=== PATIENT | female | born 1940 | race Caucasian/White ===

== ENCOUNTER → 2016-09-02 | Outpatient (CLI) | payer MEDICARE, BC ==
[~2016-09-02] MED LIST: ASPIR-LOW81 MG PO; CALTRATE-600 W600 MG PO; FISH OIL CONC1000 MG PO; FOSAMAX 70MG TA70 MG PO; LEVOTHYROXIN0.088 MG PO; SIMVASTATIN10 MG PO
== END ==
LOC: MC.RAD 10:40
DX: Z12.31 Encounter for screening mammogram for malignant neoplasm of breast (principal)

== ENCOUNTER → 2017-01-03 | Outpatient (CLI) | payer MEDICARE, BC | LOC: COL.RAD 12:48 | DX: H53.9 Unspecified visual disturbance (principal) ==

== ENCOUNTER 2018-06-19 09:19 | Day surgery (SDC) | payer MEDICARE, BC ==
[~2018-06-19] VITALS: Ht 160 cm; Wt 55.8 kg
[~2018-06-19 09:19] MED LIST changes: +EPA FISH OIL1 SGL PO; -FISH OIL CONC1000 MG PO; -LEVOTHYROXIN0.088 MG PO; -SIMVASTATIN10 MG PO; +SYNTHROID0.075 MG/T PO; +ZOCOR 20MG20 MG PO
[2018-06-19] MEDS ORDERED: MULTI VITAMINS1 TAB PO (09:51)
[2018-06-19] MEDS ORDERED: CRANBERRY450 MG PO (09:52)
[2018-06-19] MEDS ORDERED: METAMUCIL MUL0.52 GM PO (09:52)
[2018-06-19 09:53] VITALS: BP 172/76; PULSE 86; TEMP 98.3
--- NOTE | 2018-06-19 11:15 | NUR ---
Pt to [place] [facility] via cart from [facility]. Pt awake and alert. Pt ambulates to recliner with stand by assistance. Warm blanket provied. Coffee and muffin given per pt request. Will continue to monitor. Call light within reach.
[2018-06-19 11:55] VITALS: BP 124/70; PULSE 72
[2018-06-19 12:10] VITALS: BP 136/66; PULSE 63
--- NOTE | 2018-06-19 12:10 | NUR ---
Pt continues to rest. Denies needs. Tolerating food and fluids without difficulties. Call light within reach.
[2018-06-19 12:25] VITALS: BP 139/67; PULSE 63
--- NOTE | 2018-06-19 12:25 | NUR ---
Pt continues to rest. Denies needs. Call light within reach.
[2018-06-19 12:40] VITALS: BP 158/69; PULSE 78
--- NOTE | 2018-06-19 12:40 | NUR ---
Discharge instructions reviewed. Pt voices understanding. IV site discontinued with all parts intact. Pt up to dress. Call light within reach.
--- NOTE | 2018-06-19 12:50 | NUR ---
Pt escorted to private car via wheel chair. Pt accompanied home by her daughter.
--- NOTE | 2018-06-19 12:55 | NUR ---
Pt awake, taking ice chips. Pt has more color to her cheeks. Will continue to monitor. Call light within reach.
== END 2018-06-19 12:50 | disposition home or self-care (01) ==
LOC: SDCO 09:19
DX: K57.30 Diverticulosis of large intestine without perforation or abscess without bleeding (principal); K92.1 Melena; K21.9 Gastro-esophageal reflux disease without esophagitis; E78.00 Pure hypercholesterolemia, unspecified; Z88.5 Allergy status to narcotic agent; Z88.6 Allergy status to analgesic agent; Z79.82 Long term (current) use of aspirin; Z86.010 Personal history of colon polyps; Z83.79 Family history of other diseases of the digestive system
CPT/HCPCS: J2704; J7120

== ENCOUNTER → 2019-07-30 | Outpatient (CLI) | payer MEDICARE, BC ==
[~2019-07-30] MED LIST changes: +CRANBERRY450 MG PO; +METAMUCIL MUL0.52 GM PO; +MULTI VITAMINS1 TAB PO
== END ==
LOC: MC.RAD 10:14
DX: Z12.31 Encounter for screening mammogram for malignant neoplasm of breast (principal)

== ENCOUNTER 2020-02-22 08:59 | Emergency (ER) | payer MEDICARE, BC ==
[~2020-02-22] VITALS: Ht 160 cm; Wt 59.1 kg
[2020-02-22 09:05] VITALS: TEMP 98.2
[2020-02-22 09:53] LABS: BASO % 0.6 % (0.0-2.0); EOS # 0.2 (0.0-0.7); EOS % 4.2 % (0-4.0); GRAN # 2.5 (1.4-6.5); GRAN % 51.8 % (42.2-75.2); HEMATOCRIT 39.8 % (37.0-47.0); HEMOGLOBIN 12.9 g/dl (12.5-16.0); LYMPH # 1.6 (1.2-3.4); LYMPH % 33.4 % (20.0-51.0); MEAN CELL VOLUME 94 fl (80.0-100.0); MEAN CORPUSCULAR HEMOGLOBIN 31 pg (27.0-31.0); MEAN CORPUSCULAR HGB CONC 32 g/dl (33.0-37.0); MEAN PLATELET VOLUME 9.5 fl (7.4-10.4); MONO # 0.5 (0.1-0.6); MONO % 9.6 % (1.7-9.3); PLATELET COUNT 263 K/mm3 (130-400); RED BLOOD COUNT 4.23 M/mm3 (4.10-5.30); REDCELL DISTRIBUTION WIDTH-CV 13.2 % (11.5-14.5)
[2020-02-22 09:58] LABS: PROTHROMBIN TIME 11.6 SECONDS (9.7-12.8)
[2020-02-22 10:05] LABS: ALANINE AMINOTRANSFERASE 19 U/L (4-34); ALBUMIN 4.5 gm/dL (3.5-5.0); ALKALINE PHOSPHATASE 68 U/L (50-136); ANION GAP 10 mmol/L (7-16); AST,SGOT 28 U/L (15-37); BILIRUBIN,TOTAL 0.5 mg/dL (0.0-1.0); BLOOD UREA NITROGEN 23 mg/dL (7-17); CALCIUM 9.4 mg/dL (8.4-10.2); CARBON DIOXIDE 29 mmol/L (22-30); CHLORIDE 102 mmol/L (98-107); GLUCOSE 100 mg/dL (74-106); POTASSIUM 4.1 mmol/L (3.4-5.0); SODIUM 142 mmol/L (137-145); TOTAL PROTEIN 7.7 gm/dL (6.4-8.2)
[2020-02-22 10:18] LABS: TROPONIN-I < 0.012 ng/mL (0.000-0.035)
[2020-02-22] MEDS ORDERED: PLAVIX 75MG TAB75 MG PO (11:36)
[2020-02-22 12:45] VITALS: BP 149/71; PULSE 75
== END 2020-02-22 12:45 | disposition home or self-care (01) ==
LOC: COL.ER 08:59
PROVIDERS: Emergency Medicine
DX: H53.129 Transient visual loss, unspecified eye (principal); Z79.82 Long term (current) use of aspirin; Z86.73 Personal history of transient ischemic attack (TIA), and cerebral infarction without residual deficits; Z88.6 Allergy status to analgesic agent
CPT/HCPCS: Q9967

== ENCOUNTER 2021-06-03 22:09 | Emergency (ER) | payer MEDICARE, BC ==
[~2021-06-03] VITALS: Ht 160 cm; Wt 60.5 kg
[~2021-06-03 22:09] MED LIST changes: +PLAVIX 75MG TAB75 MG PO
[2021-06-03 22:23] VITALS: TEMP 97.2
[2021-06-03 22:40] LABS: BASO % 0.7 % (0.0-2.0); EOS # 0.3 K/mm3 (0.0-0.7); EOS % 4.4 % (0.0-4.0); GRAN # 2.3 K/mm3 (1.4-6.5); GRAN % 39.9 % (42.2-75.2); HEMATOCRIT 37.5 % (37.0-47.0); HEMOGLOBIN 12.1 g/dl (12.5-16.0); LYMPH # 2.5 K/mm3 (1.2-3.4); LYMPH % 44.7 % (20.0-51.0); MEAN CELL VOLUME 95 fl (80.0-100.0); MEAN CORPUSCULAR HEMOGLOBIN 31 pg (27-31); MEAN CORPUSCULAR HGB CONC 32 g/dl (33.0-37.0); MEAN PLATELET VOLUME 9.7 fl (7.4-10.4); MONO # 0.6 K/mm3 (0.1-0.6); MONO % 10.3 % (1.7-9.3); PLATELET COUNT 267 K/mm3 (130-400); RED BLOOD COUNT 3.93 M/mm3 (4.10-5.30); REDCELL DISTRIBUTION WIDTH-CV 13.1 % (11.5-14.5)
[2021-06-03 22:59] LABS: ALBUMIN 3.9 gm/dL (3.4-4.8); BILIRUBIN,TOTAL 0.4 mg/dL (0.2-1.2); CALCIUM 9.6 mg/dL (8.4-10.2); CREATININE, serum 0.79 mg/dL (0.57-1.11); TOTAL PROTEIN 7.2 gm/dL (6.2-8.1)
[2021-06-03] MEDS ORDERED: NORVASC 5MG5 MG/TAB PO (23:42)
[2021-06-04 00:27] VITALS: BP 135/80; PULSE 86
== END 2021-06-04 00:27 | disposition home or self-care (01) ==
LOC: COL.ER 22:09
PROVIDERS: Personal Emergency Response Attendant
DX: I10 Essential (primary) hypertension (principal); Z86.73 Personal history of transient ischemic attack (TIA), and cerebral infarction without residual deficits; Z79.02 Long term (current) use of antithrombotics/antiplatelets

== ENCOUNTER → 2022-02-28 | Outpatient (CLI) | payer MEDICARE, BC ==
[~2022-02-28] MED LIST changes: +NORVASC 5MG5 MG/TAB PO
== END ==
LOC: COL.RAD 09:59
DX: M25.551 Pain in right hip (principal)
CPT/HCPCS: J3301; Q9967

== ENCOUNTER → 2023-07-14 | Outpatient (CLI) | payer MEDICARE, BC | LOC: MC.RAD 08:19 | DX: Z12.31 Encounter for screening mammogram for malignant neoplasm of breast (principal) ==